=== PATIENT | male | born 1960 | race Caucasian/White ===

== ENCOUNTER 2021-02-05 16:47 | Outpatient (RCR) | payer BC, SELFPAY ==
[2021-02-05] MEDS: COVID-19 VACC, MRNA(PFIZER)/PF 30 MCG/0.3 ML SYRINGE IM (17:35)
[2021-02-26] MEDS: COVID-19 VACC, MRNA(PFIZER)/PF 30 MCG/0.3 ML SYRINGE IM (17:32)
== END 2021-02-05 23:59 ==
LOC: IMMUN 16:47
PROVIDERS: PCP Family Medicine; Referring Provider Family Medicine; Visit Provider Family Medicine
DX: Z23 Encounter for immunization (principal)
CPT/HCPCS: 0001A; 0002A; 91300

== ENCOUNTER 2022-02-03 13:46 | Outpatient (CLI) | payer BC, SELFPAY ==
--- NOTE | 2022-02-03 13:52 | CT_ITS ---
STUDY: CT MAXILLOFACIAL SINUSES REASON FOR EXAM: Male, 61 years old. SINUSITUS RADIATION DOSAGE (If Supplied By Facility): CTDIvol = ( 33.06 ) mGy, DLP = ( 796.66 ) mGycm TECHNIQUE: The patient was scanned in a multi detector CT scanner. High resolution axial imaging was performed without the administration of intravenous contrast material. Sagittal and coronal images were reconstructed. Individualized dose optimization techniques were used for this CT. COMPARISON: None. FINDINGS: FRONTAL SINUSES: Normal aeration, without mucosal inflammatory disease. ETHMOIDAL SINUSES: Normal aeration, without mucosal inflammatory disease. MAXILLARY SINUSES: Normal aeration, without mucosal inflammatory disease. SPHENOIDAL SINUSES: Normal aeration, without mucosal inflammatory disease. There is patency of the bilateral maxillary infundibuli with normal uncinate processes, ethmoid bullae, and hiatus semilunaris. Normal bilateral middle turbinates. Normal bilateral inferior turbinates. There is a right sided nasal septal deviation with a right sided nasal septal spur. There is patency of the bilateral nasal airways. The visualized osseous structures are normal. The visualized bilateral orbital contents are normal. CT/Sinus/Facial Bone IMPRESSION: 1. No CT evidence of acute or chronic sinusitis. 2. Patent ostiomeatal units bilaterally. 3. Slight deviation of nasal septum to the right with a spur projecting into the right nasal cavity near the inferior turbinate. Electronically Signed: Viet Burroughs MD at 17:04 EDT ,
== END 2022-02-03 23:59 | disposition home or self-care (01) ==
LOC: CT 13:50
PROVIDERS: PCP Family Medicine; Referring Provider Otolaryngology; Visit Provider Otolaryngology
DX: J32.0 Chronic maxillary sinusitis (principal)
CPT/HCPCS: 70486

== ENCOUNTER 2025-05-24 15:58 | Emergency (ER) | payer BC, SELFPAY ==
[2025-05-24 15:58] VITALS: BP 129/89; PULSE 69; RESP 16; TEMP 36.5; O2SAT 96; BMI 27.7
--- NOTE | 2025-05-24 16:46 | EX.ED.DYSGE1 ---
HPI History of Present Illness Chief Complaint: Abd Pain [facility] Medical History (Updated 05/24/25 @ 19:[address] Saúl James, DO) GERD (gastroesophageal reflux disease) Hypertension Hypercholesteremia Home Medications ?Medication ?Instructions ?Recorded ?Last Taken ?Type Lactobacillus acidophilus 10 100 mmu cells PO DAILY 05/24/25 Unknown History billion cell capsule (Probiotic) amoxicillin 875 mg-potassium 1 tab PO BID 10 days #20 tabs 05/24/25 Unknown Rx clavulanate 125 mg tablet ascorbic acid (vitamin C) 1,000 mg 1,000 mg PO DAILY 05/24/25 Unknown History tablet,extended release (C Complex) atorvastatin 40 mg tablet 40 mg PO DAILY 05/24/25 Unknown History cholecalciferol (vitamin D3) 50 50 mcg PO .COMPLEX 05/24/25 Unknown History mcg (2,000 unit) capsule (Vitamin D3) erythromycin 5 mg/gram (0.5 %) eye 1 applic ophthalmic (eye) DAILY 05/24/25 Unknown History ointment PRN irritation losartan 25 mg tablet 25 mg PO DAILY 05/24/25 Unknown History metoprolol succinate 25 mg 25 mg PO DAILY 05/24/25 Unknown History tablet,extended release 24 hr multivitamin (Daily Multi-Vitamin 1 tab PO DAILY 05/24/25 Unknown History tablet) omeprazole 20 mg capsule,delayed 20 mg PO DAILY PRN heartburn 05/24/25 Unknown History release ondansetron 4 mg disintegrating 4 mg PO Q8H PRN PRN Nausea #10 tabs 05/24/25 Unknown Rx tablet sildenafil 25 mg tablet (Viagra) 50 mg PO TID PRN sexual activity 05/24/25 Unknown History Allergy/AdvReac Type Severity Reaction Status Date / Time No Known Allergies Allergy Verified 05/24/25 16:00 Social History Smoking Status: Never smoker EXAM Physical Exam Const Vital Signs: 05/24/25 15:58 05/24/25 19:00 Temperature 97.7 F L Temperature Source Oral Pulse Rate 69 57 L Respiratory Rate 16 18 Blood Pressure 129/89 H 119/91 H Blood Pressure Mean 102 100 Pulse Ox 96 99 Oxygen Delivery Method Room Air Room Air MDM MDM MDM Narrative Medical decision making narrative: HISTORY OF PRESENT ILLNESS: Chief complaint: Abdominal 64-year-old male presents abdominal pain. Notes 2 weeks of intermittent lower abdominal pain. Does associate pain with urination but denies frequency, urgency or hematuria. Notes history of appendectomy but otherwise denies abdominal surgeries. No issues with bowel movements. Last bowel was yesterday. No melena hematochezia. No vomiting or nausea. No fever or chills. No chest pain or shortness of breath endorsed. No flank pain. No history of kidney stones. REVIEW OF SYSTEMS: Pertinent positives: Abdominal pain Pertinent negatives: PHYSICAL EXAM: Nursing triage notes reviewed, Vital signs reviewed Constitutional: please see [facility] HENT: MMM Eyes: Pupils equal round and reactive to light, Extraocular muscles intact Neck: No stridor, no JVD, full neck ROM Lungs: Clear to auscultation, No wheezing or rales. No increased work of breathing, no conversational dyspnea, no accessory muscle use, no nasal flaring. No respiratory distress noted Heart: Regular rate and rhythm, No murmurs, No rubs and No gallops, 2+ distal pulses (radial, femoral, posterior tibial) in all extremities Abdomen: Soft, there is no tenderness, rigidity, rebound or guarding, no obvious peritoneal signs, no palpable pulsatile abdominal masses, no auscultated abdominal bruit : No CVAT Extremities: No edema Neuro: No new focal neurological deficits, cranial nerves II through XII intact, 5/5 strength in all present extremities. Intact sensation to light touch in all present extremities, 2+ reflexes bilateral patella tendons. Skin: No rash or lesions noted MEDICAL DECISION MAKING: Chief Complaint: please see HPI External records reviewed: No prior imaging of the abdomen or pelvis noted Factors affecting care: none Social determinants of health: none History obtained from others: none Consults: none [facility] Narrative: The patient was initially hemodynamically stable, afebrile and nontoxic-appearing. Abdominal exam without appreciable tenderness, distention or peritoneal signs. I considered the following differential diagnosis: AAA, small bowel obstruction, abdominal perforation, appendicitis, pancreatitis, hepatobiliary pathology (acute cholecystitis), mesenteric ischemia, pathology (ie nephrolithiasis, pyelonephritis). I obtained a lab and imaging workup to further determine if the patient was suffering from a life-threatening etiology. The patient was asymptomatic and as such I did not pursue any initial therapies including pain or nausea medicines. ALL IMAGES (IF OBTAINED) HAVE BEEN PERSONALLY REVIEWED AND INTERPRETED BY MYSELF. CMP without evidence of acute kidney injury, significant electrolyte abnormality, anion gap to suggest end organ hypo-perfusion, no evidence of metabolic acidosis with a normal bicarbonate, no evidence of hepatobiliary obstructive pathology. Lipase is wnl indicating no pancreatic inflammation. Urinalysis shows no evidence of urinary inflammation suggestive of UTI CBC pending CT scan of the abdomen pelvis shows evidence of acute diverticulitis Will give oral Augmentin. Given strict return precautions. The patient and/or family, caregivers express understanding. The patient and/or family, caregivers agrees with the plan. Shared decision making: I will have a discussion with the patient and or visitors regarding risk/benefits of further testing or admission. They will be made aware of of the risk/benefits inherent in this decision they will be given the opportunity to voice understanding. Total critical care time today provided was at least 0 minutes. This excludes separately billable procedures. Critical care time (if documented) is secondary to the patient having high probability of clinically significant/life threatening deterioration in the patient's condition which required my urgent intervention. Impression: 1. Abdominal pain 2. Acute diverticulitis Dispo: Discharge home This note was generated with [employer] dictation software. It may contain incorrect words, spelling, and punctuation that were not noted in review of the chart prior to signing. Lab Data Labs: Laboratory Results - last 24 hr 05/24/25 05/24/25 16:45 16:58 Sodium 139 Potassium 4.5 Chloride 104 Carbon Dioxide 25.7 Anion Gap 9 BUN 15 Creatinine 1.00 Estim Creat Clear Calc 83.42 Est GFR (MDRD) Non-Af 85 BUN/Creatinine Ratio 14.9 Glucose 90 Calcium 9.3 Total Bilirubin 0.91 AST 29 ALT 26 Alkaline Phosphatase 76 Total Protein 6.9 Albumin 4.3 Globulin 2.6 Albumin/Globulin Ratio 1.6 Lipase 17 Urine Color Straw Urine Clarity Clear Urine pH 7.0 Ur Specific [place] 1.005 Urine Protein Negative Urine Glucose (UA) Normal Urine Ketones Negative Urine Occult Blood Negative Urine Nitrite Negative Urine Bilirubin Negative Urine Urobilinogen Normal Ur Leukocyte Esterase Negative Radiography Diagnostic Testing: Clinical Impression(s) from Imaging Studies Abdomen/Pelvis CT 05/24/25 16:50 IMPRESSION: Acute uncomplicated sigmoid diverticulitis. Concentric urinary bladder wall thickening. Correlate with urinalysis to exclude cystitis. Reading Location: [id number] Discharge Plan Triage Chief Complaint: Abd Pain ED Provider: Saúl James Dx/Rx/DC Orders Clinical Impression: Diverticulitis Instructions: Diverticulitis Dc Prescriptions: New amoxicillin-pot clavulanate 875-125 mg tablet 1 tab PO BID 10 Days Qty: 20 0RF ondansetron 4 mg tablet,disintegrating 4 mg PO Q8H PRN PRN (Reason: Nausea) Qty: 10 0RF No Action atorvastatin 40 mg tablet 40 mg PO DAILY losartan 25 mg tablet 25 mg PO DAILY metoprolol succinate 25 mg tablet extended release 24 hr 25 mg PO DAILY Probiotic 10 billion cell capsule 100 mmu cells PO DAILY omeprazole 20 mg capsule,delayed release(DR/EC) 20 mg PO DAILY PRN (Reason: heartburn) erythromycin 5 mg/gram (0.5 %) ointment 1 applic ophthalmic (eye) DAILY PRN (Reason: irritation) multivitamin [Daily Multi-Vitamin] Tablet 1 tab PO DAILY C Complex 1,000 mg tablet extended release 1,000 mg PO DAILY cholecalciferol (vitamin D3) [Vitamin D3] 50 mcg (2,000 unit) capsule 50 mcg PO .COMPLEX Rx Instructions: 50 mcg orally; 3 times a week sildenafil [Viagra] 25 mg tablet 50 mg PO TID PRN (Reason: sexual activity) Primary Care Provider: Brian Gonzalez Referrals: Brian Gonzalez MD [Primary Care Provider] - Activity Restrictions/Additional Instructions: Thank you for trusting us with your care today! Your CT scan was consistent with acute diverticulitis. This is inflammation of your colon. This is treated with antibiotics. Please take antibiotics as prescribed until course complete. Please take Zofran as prescribed/as needed for nausea and vomiting if they develop. Please take Tylenol (2 pills, 650 mg), ibuprofen (2 pills, 400 mg) every 6 hours as needed for pain and fever control. Please return to the emergency department if your symptoms suddenly change or worsen. Please follow with your primary care physician for further outpatient evaluation and management. Print Language: Colombian Disposition Disposition: Home, Self Care
--- NOTE | 2025-05-24 16:50 | CT_ITS ---
PROCEDURE: ABDOMEN/PELVIS W IV CONT ONLY 05/24/2025 REASON FOR EXAM: LOWER ABDOMINAL PAIN TECHNIQUE: ABDOMEN/PELVIS W IV CONT ONLY Coronal and Sagittal reconstruction series were provided. CONTRAST: Isovue 370 VOLUME: 98 mL One or more dose reduction techniques were used (e.g., Automated exposure control, adjustment of the mA and/or kV according to patient size, use of iterative reconstruction technique. RADIATION DOSE SUMMARY: CTDlvol: 9.97+ 18.36 mGy DLP: 972.59 mGycm COMPARISON: None. FINDINGS: The peripheral soft tissues are unremarkable. Degenerative changes of the spine. Scoliosis. Mild atherosclerosis. No lymphadenopathy. The liver, gallbladder, are unremarkable. Atrophic pancreas. The spleen and adrenals are unremarkable. Symmetric enhancement of bilateral kidneys. No hydroureteronephrosis. Concentric urinary bladder wall thickening. Sigmoid colon wall thickening in the region of diverticuli with mild adjacent inflammatory changes compatible with acute uncomplicated diverticulitis. CT/Abdomen/Pelvis W IV Cont ONLY IMPRESSION: Acute uncomplicated sigmoid diverticulitis. Concentric urinary bladder wall thickening. Correlate with urinalysis to exclu de cystitis. Reading Location: [place] [id number]
--- NOTE | 2025-05-24 16:50 | CT_ITS ---
PROCEDURE: ABDOMEN/PELVIS W IV CONT ONLY 05/24/2025 REASON FOR EXAM: LOWER ABDOMINAL PAIN TECHNIQUE: ABDOMEN/PELVIS W IV CONT ONLY Coronal and Sagittal reconstruction series were provided. CONTRAST: Isovue 370 VOLUME: 98 mL One or more dose reduction techniques were used (e.g., Automated exposure control, adjustment of the mA and/or kV according to patient size, use of iterative reconstruction technique. RADIATION DOSE SUMMARY: CTDlvol: 9.97+ 18.36 mGy DLP: 972.59 mGycm COMPARISON: None. FINDINGS: The peripheral soft tissues are unremarkable. Degenerative changes of the spine. Scoliosis. Mild atherosclerosis. No lymphadenopathy. The liver, gallbladder, are unremarkable. Atrophic pancreas. The spleen and adrenals are unremarkable. Symmetric enhancement of bilateral kidneys. No hydroureteronephrosis. Concentric urinary bladder wall thickening. Sigmoid colon wall thickening in the region of diverticuli with mild adjacent inflammatory changes compatible with acute uncomplicated diverticulitis. CT/Abdomen/Pelvis W IV Cont ONLY IMPRESSION: Acute uncomplicated sigmoid diverticulitis. Concentric urinary bladder wall thickening. Correlate with urinalysis to exclu de cystitis. Reading Location: [place] [id number]
[2025-05-24 17:06] LABS: Mucous, Urine 0 SEEN /hpf (<or=2+); Squamous Epithelial Cells - UA 0 SEEN /hpf (0-5)
[2025-05-24 17:30] LABS: AST(SGOT) 29 U/L (<=37); Alanine Aminotransfer ALT/SGPT 26 U/L (<=46); Albumin, Serum 4.3 g/dL (3.4-4.8); Alkaline Phosphatase 76 U/L (40-129); Anion Gap 9 (5-15); BUN 15 mg/dL (4-19); BUN/Creat Ratio 14.9 RATIO (10-20); Calcium,Total 9.3 mg/dL (7.6-11.0); Carbon Dioxide 25.7 mmol/L (21.0-32.0); Chloride 104 mmol/L (98-108); Estimated Creatinine Clearance 83.42 ml/min (50-250); Globulin 2.6 g/dL (2.2-4.2); Glucose 90 mg/dL (70-99); Lipase 17 U/L (13-75); Potassium 4.5 mmol/L (3.3-5.1)
[2025-05-24 19:00] VITALS: BP 119/91; PULSE 57; RESP 18; O2SAT 99
[2025-05-24 19:09] LABS: Color, Urine Straw (Yellow); Glucose, Dipstick Normal (Normal); Ketone-Dipstick Negative (Negative); Leukocyte Esterase-Dipstick Negative /ul (Negative); Nitrite-Dipstick Negative (Negative); Occult Blood-Urine Negative /ul (Negative); Protein-Dipstick Negative (Negative); Specific Gravity, Urine 1.005 (1.002-1.030); Urine Bilirubin Dipstick Negative (Negative)
[2025-05-24 19:57] VITALS: BP 125/98; PULSE 60; RESP 18; TEMP 36.1; O2SAT 98
[2025-05-24 20:02] LABS: Red Blood Cells-Urine 0-5 SEEN /hpf (0-5)
[2025-05-24 21:02] LABS: Hematocrit 42.4 % (40-54); Hemoglobin 14.4 g/dL (13.0-16.5); Immature Granulocytes Count 0.020 X10^3/uL (0.0-0.0); Mean Corp Hgb Conc 34.0 g/dL (32-36); Mean Corpuscular Volume 94.9 fL (80-94); Mean Platelet Vol. 11.7 fl (6.2-12.0); NRBC Flagged by Analyzer 0 % (0-5); Platelet Count 193 K/mm3 (150-450); RBC Distribution Width CV 12.0 % (11.6-14.6); RBC Distribution Width SD 42.3 fl (35.1-43.9); Red Blood Count 4.47 M/mm3 (4.6-6.2); White Blood Count 7.3 K/mm3 (4.4-11.0)
== END 2025-05-24 19:57 | disposition home or self-care (01) ==
PROVIDERS: Emergency Provider Emergency Medicine; PCP Family Medicine; Referring Provider Emergency Medicine; Visit Provider Emergency Medicine
DX: K57.32 Diverticulitis of large intestine without perforation or abscess without bleeding (principal); I10 Essential (primary) hypertension; Z79.899 Other long term (current) drug therapy
CPT/HCPCS: 74177; 80053; 81001; 83690; 85025; 99282